=== PATIENT | female | born 1985 | race Two or more races ===

== ENCOUNTER → 2020-10-14 | Outpatient (REF) | payer OTHER ==
[2020-10-14 14:04] LABS: HEMATOCRIT 38.3 % (36.0-47.0); HEMOGLOBIN 11.5 g/dl (12.0-15.5); MEAN CORPUSCULAR HEMOGLOBIN 26.3 pg (27.0-33.0); MEAN CORPUSCULAR VOLUME 87.4 fl (80.0-96.0); PLATELET COUNT, AUTOMATED 242 10^3/uL (150-450); RED BLOOD COUNT 4.38 10^6/uL (4.00-5.40); WHITE BLOOD COUNT 7.3 10^3/uL (4.0-10.0)
[2020-10-14 15:07] LABS: HEPATITIS C VIRUS ABY INDEX 0.2 INDEX (<0.8); HIV 1&2 SCREEN CENTAUR NEGATIVE (NEGATIVE)
[2020-10-14 15:36] LABS: CHLAMYDIA DNA AMPLIFICATION NEGATIVE (NEGATIVE); GC DNA AMPLIFICATION NEGATIVE (NEGATIVE)
== END ==
LOC: M PLALAB 10:44
PROVIDERS: ATTEND Advanced Practice Midwife
DX: Z34.81 Encounter for supervision of other normal pregnancy, first trimester (principal); Z3A.00 Weeks of gestation of pregnancy not specified

== ENCOUNTER 2020-11-09 12:00 | Emergency (ER) | payer OTHER ==
[~2020-11-09] VITALS: Ht 162.6 cm; Wt 91.4 kg
[2020-11-09] MEDS ORDERED: diphenhydrAMINE 25MG CAP PO ONE (12:45)
--- NOTE | 2020-11-09 16:37 | REP ---
INDICATION: 13 weeks, unable to get FHR. COMPARISON: None. TECHNIQUE: Real-time sonographic evaluation of gravid uterus performed. FINDINGS: There is a single living intrauterine gestation with an estimated gestational age of 12 weeks 5 days based on a crown-rump length of 63 mm, EDC 05/19/2021. The heart rate is 161 beats per minute. There is no subchorionic hemorrhage. IMPRESSION: Viable intrauterine gestation as above. <Electronically signed by Salo Madera > 11/09/20 [id number]
[2020-11-09] MEDS ORDERED: KETO2CR TOP (16:41)
[2020-11-09 16:56] VITALS: BP 121/82
== END 2020-11-09 17:04 | disposition home or self-care (01) ==
LOC: M ED 12:00
DX: O99.511 Diseases of the respiratory system complicating pregnancy, first trimester (principal); J06.9 Acute upper respiratory infection, unspecified; O99.341 Other mental disorders complicating pregnancy, first trimester; F41.9 Anxiety disorder, unspecified; F43.9 Reaction to severe stress, unspecified; Z79.899 Other long term (current) drug therapy; Z3A.13 13 weeks gestation of pregnancy
CPT/HCPCS: 36415; 76801; 84702; 87880; 99283; U0003

== ENCOUNTER 2020-11-12 08:16 | Emergency (ER) | payer OTHER ==
[~2020-11-12] VITALS: Ht 162.6 cm; Wt 92.7 kg
[~2020-11-12 08:16] MED LIST: KETO2CR TOP
[2020-11-12] MEDS ORDERED: FLUORESCEIN OPHTH 1 MG STRIP OD ONE (09:00)
[2020-11-12] MEDS ORDERED: TETRACAINE 0.5% OPHTH SOLN 4ML OD ONE (09:00)
[2020-11-12 09:34] LABS: BASO % 0.3 % (0.0-1.0); EOS # 0.1 10^3/uL (0.0-0.5); EOS % 1.9 % (0.0-3.0); HEMATOCRIT 37.1 % (36.0-47.0); HEMOGLOBIN 11.1 g/dl (12.0-15.5); LYMPH # 1.9 10^3/uL (1.5-5.0); MEAN CORPUSCULAR HEMOGLOBIN 26.5 pg (27.0-33.0); MEAN CORPUSCULAR HGB CONC 29.9 g/dl (32.0-36.5); MEAN CORPUSCULAR VOLUME 88.5 fl (80.0-96.0); MONO # 0.4 10^3/uL (0.0-0.8); MONO % 5.8 % (0.0-5.0); NEUTROPHILS % 62.8 % (36.0-66.0); PLATELET COUNT, AUTOMATED 199 10^3/uL (150-450); RED BLOOD COUNT 4.19 10^6/uL (4.00-5.40); WHITE BLOOD COUNT 6.4 10^3/uL (4.0-10.0)
[2020-11-12 09:53] LABS: BLOOD UREA NITROGEN 7 MG/DL (7-18); CALCIUM LEVEL 8.6 MG/DL (8.5-10.1); CARBON DIOXIDE LEVEL 26 MEQ/L (21-32); CHLORIDE LEVEL 103 MEQ/L (98-107); CREATININE FOR GFR 0.84 MG/DL (0.55-1.30); GLOMERULAR FILTRATION RATE > 60.0 (>60); GLUCOSE, FASTING 136 MG/DL (70-100); POTASSIUM SERUM 3.7 MEQ/L (3.5-5.1); SODIUM LEVEL 137 MEQ/L (136-145)
[2020-11-12 10:02] LABS: MONO REFLEX EBV COMP NEGATIVE (NEGATIVE)
--- NOTE | 2020-11-12 10:10 | REP ---
INDICATION: unable to get FHR with doppler. 13 weeks. COMPARISON: None. TECHNIQUE: Transabdominal obstetric sonography. FINDINGS: Scanning through the gravid uterus demonstrates a single living intrauterine gestation in a free-floating transverse lie. The heart rate is recorded at 170 beats per minute. Placenta is predominantly anterior. The crown-rump length of the embryonic pole measures 6.7 cm.. This corresponds with a gestational age estimate of 13 weeks 0 days. There is a echogenic shadowing area in the myometrium 1.8 cm in greatest diameter question fibroid. No complication is identified. Anterior uterine contraction is seen. IMPRESSION: Viable single intrauterine gestation at 13 weeks 0 days by crown-rump length. ALLAN by sonography May 20, 2021. Question small uterine fibroid. <Electronically signed by Hermilo Damon > 11/12/20 [id number]
[2020-11-12] MEDS ORDERED: ACETAMINOPHEN TAB 650MG DOSE (2X325MG) PO ONE (10:30)
[2020-11-12 10:35] VITALS: BP 125/70
[2020-11-12] MEDS ORDERED: KEFL500C17 PO (10:35)
[2020-11-14 15:08] LABS: EBV VIRAL CAPSID AG IgM <36.0 U/mL (0.0-35.9)
== END 2020-11-12 10:55 | disposition short-term general hospital (02) ==
LOC: M ED 08:16
DX: O99.891 Other specified diseases and conditions complicating pregnancy (principal); R22.0 Localized swelling, mass and lump, head; R82.71 Bacteriuria; O98.511 Other viral diseases complicating pregnancy, first trimester; B02.30 Zoster ocular disease, unspecified; O99.511 Diseases of the respiratory system complicating pregnancy, first trimester; J03.90 Acute tonsillitis, unspecified; O99.341 Other mental disorders complicating pregnancy, first trimester; F43.10 Post-traumatic stress disorder, unspecified; Z3A.13 13 weeks gestation of pregnancy

== ENCOUNTER → 2020-12-08 | Outpatient (CLI) | payer OTHER ==
[~2020-12-08] MED LIST changes: +KEFL500C17 PO
== END ==
LOC: M WHC 12:33
PROVIDERS: ATTEND Advanced Practice Midwife
DX: Z53.20 Procedure and treatment not carried out because of patient's decision for unspecified reasons (principal); O09.529 Supervision of elderly multigravida, unspecified trimester

== ENCOUNTER → 2020-12-25 | Outpatient (CLI) | payer OTHER ==
--- NOTE | 2020-12-25 19:45 | REP ---
INDICATION: ANATOMY COMPARISON: None. TECHNIQUE: Transabdominal obstetrical ultrasound with color Doppler evaluation. FINDINGS: Examination demonstrates a single live intrauterine in breech presentation. motion is identified by technologist. Placenta is noted anterior and grade 1 without evidence for placenta previa or abruption. Amniotic fluid volume is normal. Cervix measures 3.9 cm in length and appears closed. There is suggestion for 1.3 cm partially calcified anterior intramural fibroid. Gestational age by LMP 19 weeks 4 days with ALLAN 05/17/2021. Gestational age by current measurements 19 weeks 2 days with ALLAN 05/19/2021. FHR equals 162 beats per minute. BPD: 4.4 cm 19 weeks 2 days HC: 16.7 cm 19 weeks 3 days AC: 13.0 cm 18 weeks 4 days FL: 3.2 cm 20 weeks 0 days HL: 2.9 cm 19 weeks 2 days HC/AC: 1.28 Estimated weight 281 grams. Anatomical assessment demonstrates normal structures including cranium, choroid plexus, cavum, cerebellum/posterior fossa, facial features, lungs, ventricular outflow tracts, diaphragm, stomach, cord insertion/three-vessel cord, kidneys/bladder, spine, and extremities. IMPRESSION: 1. Single live intrauterine in breech presentation. 2. Limited evaluation of the heart along with suspected prominent chordae tendineae may warrant re-evaluation and follow-up. <Electronically signed by Maninder Munguia > 12/25/201940
== END ==
LOC: M WHC 12:52
PROVIDERS: ATTEND Advanced Practice Midwife
DX: O09.522 Supervision of elderly multigravida, second trimester (principal); O32.1XX0 Maternal care for breech presentation, not applicable or unspecified; Z3A.19 19 weeks gestation of pregnancy

== ENCOUNTER → 2021-02-06 | Outpatient (CLI) | payer OTHER ==
[~2021-02-06] MED LIST changes: +PRENTAB9 PO
[2021-02-06 15:55] LABS: HEMATOCRIT 34.8 % (36.0-47.0); HEMOGLOBIN 10.7 g/dl (12.0-15.5); MEAN CORPUSCULAR HEMOGLOBIN 27.6 pg (27.0-33.0); MEAN CORPUSCULAR HGB CONC 30.7 g/dl (32.0-36.5); MEAN CORPUSCULAR VOLUME 89.7 fl (80.0-96.0); PLATELET COUNT, AUTOMATED 186 10^3/uL (150-450); RED BLOOD COUNT 3.88 10^6/uL (4.00-5.40); WHITE BLOOD COUNT 8.1 10^3/uL (4.0-10.0)
== END ==
LOC: M PLALAB 12:59
PROVIDERS: ATTEND Advanced Practice Midwife
DX: Z34.92 Encounter for supervision of normal pregnancy, unspecified, second trimester (principal); Z3A.00 Weeks of gestation of pregnancy not specified
CPT/HCPCS: 36415; 82950; 85027; 86850; 86900; 86901; 90834; G0463

== ENCOUNTER 2021-02-10 20:34 | Outpatient (CLI) | payer OTHER ==
[~2021-02-10] VITALS: Ht 160 cm; Wt 93.5 kg
[~2021-02-10 20:34] MED LIST changes: -PRENTAB9 PO
[2021-02-10 20:53] VITALS: BP 116/59
[2021-02-10] MEDS ORDERED: PRENTAB9 PO (21:27)
--- NOTE | 2021-02-10 22:13 | IPNPDOC ---
Text Note Date of Service The patient was seen on 02/10/21. NOTE Triage Note Veena is a 35yo with SIUP at 26w0d presenting to triage today for CC of LOF. She notes that yesterday when she was laying on the couch she noticed some fluid leak out onto her pants and sofa. She denies persistent leaking since that time. Has had some cramping, but nothing regular- no pattern. Feels good movement. No vaginal bleeding. Denies sx of vaginal odor/vaginal discomfort. No dysuria. Vitals wnl, afebrile Gen: WDWN, resting comfortably in bed Abdomen: soft, gravid, NTTP Extremities: no edema of BLE SSE: normal physiologic discharge in vaginal vault, cervix visually thick/closed/high, NO pooling, negative valsalva. Nitrazine negative, Ferning negative. EDEN/WP show normal liu with no budding yeast/hyphae, no trichomonas, no clue cells TAUS: SIUP with cephalic presentation, MVP 7.5cm, anterior placenta, +FCA, +FM Cat I FHRT with +accels, -decels, mod chester no ctx pattern on toco Veena is a 35yo with SIUP at 26w0d with NO e/o PPROM or PTL. Negative nitrazine/ferning/pooling/valsalva. Cervix visually cl/th/h. Reassuring status. MVP 7.5cm. Plan: -Discharged to home -Pt to follow up with routine OB visit 26 February and has 3hr GTT scheduled -Discussed return precautions MD BIN Clay Fishbone, I+O VSTheodore I+O Vital Signs Date Time Temp Pulse Resp B/P (MAP) Pulse Ox O2 Delivery O2 Flow Rate FiO2 02/10/21 20:53 98.8 97 18 116/59 (78) Huma Baird MD Feb 10, 2021 22:13
== END 2021-02-10 22:20 | disposition home or self-care (01) ==
LOC: M LDO 20:34
PROVIDERS: ATTEND Obstetrics & Gynecology
DX: O26.892 Other specified pregnancy related conditions, second trimester (principal); Z3A.26 26 weeks gestation of pregnancy
CPT/HCPCS: G0378; G0463

== ENCOUNTER → 2021-02-18 | Outpatient (CLI) | payer OTHER ==
[~2021-02-18] MED LIST changes: +PRENTAB9 PO
== END ==
LOC: M LAB 07:45
PROVIDERS: ATTEND Advanced Practice Midwife
DX: O99.810 Abnormal glucose complicating pregnancy (principal); Z3A.00 Weeks of gestation of pregnancy not specified

== ENCOUNTER 2021-04-22 04:07 | Outpatient (CLI) | payer OTHER ==
[~2021-04-22] VITALS: Ht 162.6 cm; Wt 99.8 kg
[2021-04-22 04:34] VITALS: BP 139/81
[2021-04-22] MEDS ORDERED: ZOLO50TA PO (05:43)
[2021-04-22 05:53] VITALS: BP 143/84
[2021-04-22 06:54] VITALS: BP 126/80
[2021-04-22] MEDS ORDERED: CEPH500T PO (07:51)
--- NOTE | 2021-04-22 08:01 | IPNPDOC ---
Text Note Date of Service The patient was seen on 04/22/21. NOTE Triage Note Veena is a 36yo with SIUP at 36w1d by 9wk u/s presenting for ctx that she feels in her back and front. She endorses she hasn't had a lot of water to drink. Baby moving very well. No LOF/vaginal bleeding. Vitals wnl, afebrile Gen: WDWN, resting comfortably in bed Abd: gravid, NTTP Extremities: no edema of BLE SCE by RN: cervix thick/high/posterior (not well tolerated) GBS swab obtained Cat I FHRT with +accels, -decels, mod chester [place]: irregular ctx Labs: Urinalysis: 3+ LE, 27 WBC, 3+ bacteria, 6 squam Assessment: Veena is a 36yo with SIUP at 36w1d by 9wk u/s with NO e/o labor. She has likely UTI by UA. Reassuring assessment. Normal vitals and exam. Plan: -Safe for discharge home -Rx keflex for presumed UTI (urine culture pending) -GBS swab was collected so patient can begin keflex right away -Discussed she would not need to keep OB appt later today, but she strongly desires to, so I did not perform u/s for presentation -discussed return precautions Huma Baird MD VS,Theodore, I+O VS, Theodore, I+O Vital Signs Date Time Temp Pulse Resp B/P (MAP) Pulse Ox O2 Delivery O2 Flow Rate FiO2 04/22/21 06:54 98.7 79 18 126/80 (95) Huma Baird MD April 22, 2021 08:01
== END 2021-04-22 08:08 | disposition home or self-care (01) ==
LOC: M LDO 04:07
PROVIDERS: ATTEND Obstetrics & Gynecology
DX: O23.43 Unspecified infection of urinary tract in pregnancy, third trimester (principal); O26.893 Other specified pregnancy related conditions, third trimester; Z3A.36 36 weeks gestation of pregnancy; R10.2 Pelvic and perineal pain; Z88.2 Allergy status to sulfonamides
CPT/HCPCS: 59025; 81001; 87081; 87086; G0378; G0463

== ENCOUNTER → 2021-04-23 | Outpatient (CLI) | payer OTHER ==
[~2021-04-23] MED LIST changes: +CEPH500T PO; +ZOLO50TA PO
--- NOTE | 2021-04-23 12:09 | REP ---
INDICATION: GROWTH/SIZE DATE DISCREPANCY. COMPARISON: Comparison study December 25, 2020.. TECHNIQUE: Transabdominal obstetric sonography. FINDINGS: Scanning through the gravid uterus demonstrates a viable single intrauterine gestation in cephalic lie. motion is observed and heart rate is recorded at 150 beats per minute. A anterior placenta is seen, grade 1, without evidence of placenta previa. Closed cervical length is not measurable due to head position.. No extrauterine abnormality is observed. Amniotic fluid is subjectively normal. ODALIS is normal 16.0 cm.. anatomic survey is not performed with today's exam.. Biometry chart: BPD 8.3 cm, 33 weeks 3 days Head circumference 32.5 cm, 36 weeks 6 days Abdominal circumference 33.5 cm, 37 weeks 3 days Femur length 7.3 cm, 37 weeks 2 days Humeral length 6.3 cm, 36 weeks 2 days HC AC ratio normal 0.97 Cephalic index normal 0.69 Estimated weight 3053 g, 6 lb 11 oz, 61st percentile for 36 weeks 4 days IMPRESSION: Viable single intrauterine gestation at 36 weeks 2 days by today's composite sonographic criteria. ALLAN by today's sonography May 19, 2021. No complication identified. Expected gestational age estimate based on prior sonography 36 weeks 4 days, ALLAN by prior sonography May 17, 2021. There is evidence of appropriate interval growth. <Electronically signed by Hermilo Damon > 04/23/21 2050
== END ==
LOC: M WHC 11:06
PROVIDERS: ATTEND Advanced Practice Midwife
DX: O26.849 Uterine size-date discrepancy, unspecified trimester (principal); Z3A.36 36 weeks gestation of pregnancy

== ENCOUNTER 2021-04-28 04:06 | Inpatient (IN) | payer OTHER ==
[2021-04-28] VITALS (26 sets, daily range): BP systolic 113–153; BP diastolic 59–90
[~2021-04-28] VITALS: Ht 162.6 cm; Wt 102.1 kg
[2021-04-28] MEDS ORDERED: CARBOPROST TROMETHAMINE 250 MCG/ML AMP IM PRN (05:20)
[2021-04-28] MEDS ORDERED: METHYLERGONOVINE MALEATE 0.2 MG/ML VIAL (J2210) IM PRN (05:20)
[2021-04-28] MEDS ORDERED: LACTATED RINGER'S 1000 ML IV STA (05:20)
[2021-04-28] MEDS ORDERED: LIDOCAINE 1% MDV 20ML VIAL INFIL PRN (05:20)
[2021-04-28] MEDS ORDERED: TRANEXAMIC ACID INJection 1,000 MG in NS 100 ML IV PRN (05:20)
[2021-04-28] MEDS ORDERED: OXYTOCIN DRIP 30 UNITS in IV 1 EA IV PRN ×4 (05:20)
--- NOTE | 2021-04-28 05:35 | HPEPDOC ---
Obstetrical History & Physical General Date of Admission Apr 28, 2021 at 05:17 Primary Care Physician: JACKIE LÓPEZ CNM History of Present Illness Veena is a 36-year-old who is a at 37 weeks gestation with an ALLAN of 05/19/21 based off of her first trimester ultrasound. She initiated care in her first trimester of care at [facility]. Her has been complicated by advanced maternal age, a history of delivery at 35 weeks due to PROM and PTSD. She presents to L&D with complaints of leaking of fluid that started at 0200. Reports fluid is clear and yellow. Reports occasional contractions and active movement. She denies vaginal bleeding. Chief Complaint: Rupture of membranes Information Provided By: Patient Age: 36 : 5 Term: 2 Pre-term: 1 Abortions: 0 Livin Care Care: Good Care Dating Final EDC: May 19, 2021 Final EDC by: 1st trimester (US) EGA at Admission: 37 Antepartum Course Diagnos(e)s AMA History of labor with fetus with neuroblastoma () Height (inches): 64 Admission Weight (lbs.): 224 Past Medical History Past Obstetrical History #1: Date of Delivery: Jun 13, 2005 Gestation: 37 Type of Delivery: Spontaneous Vaginal Del. Sex of : Female (7 lbs 7 oz) Complications: No Past Obstetrical History #2: Past Obstetrical History: Multigravida Date of Delivery: April 23, 2017 Gestation: 35 Type of Delivery: Spontaneous Vaginal Del. Sex of : Female Complications: Yes (PROM and due to neuroblastomoa at 9 months old) Past Obstetrical History #3: Past Obstetrical History: Multigravida Date of Delivery: Jul 23, 2019 Gestation: 37 Type of Delivery: Spontaneous Vaginal Del. 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) Past Medical History Medical History back pain psychiatric-see below Surgical History: Tonsilectomy Family History Significant Family History: Cancer (colon and breast), Hypertension Social History Marital Status: Family situation: Spouse/partner home Psychosocial History: Anxiety, Depression, PTSD * Smoker: non-smoker Alcohol: Denies Drugs: denies Abuse Violence Screening Have you been hit/kicked/slapp: No Have you been sexually assault: No (being treated with Zoloft) Allergies Coded Allergies: Sulfa (Sulfonamide Antibiotics) (Verified Allergy, Unknown, 02/10/21) Medications Scheduled Cephalexin (Cephalexin) 500 Mg Tablet, 500 MG PO QID No.137/Iron/Folic Acd ( Vitamin Tablet) 1 Each Tablet, 1 TAB PO DAILY Sertraline Hcl (Zoloft) 50 Mg Tablet, 1 TAB PO QHS Physical Examination Physical Examination GENERAL: Alert and oriented times three. BREAST: . ABDOMEN: Gravid and non-tender to touch. FETUS: Is vertex (VTX) by sterile vaginal examination (SVE), fetus is vertex (VTX) by Robert. LUNGS: Clear to auscultation (CTA). SSE: scant yellow to clear fluid noted in vagina, no pooling, negative nitrazine, positive fern. + nitrazine of fluid that was noted on the towel. EXTREMITIES: Generalized edema. No clonus. Deep tendon reflexes (DTRs) + 2. Vital Signs/I&O Vital Signs Date Time Temp Pulse Resp B/P (MAP) Pulse Ox O2 Delivery O2 Flow Rate FiO2 04/28/21 04:27 97.8 83 18 127/82 (97) 98 Room Air Laboratory Data 24H LABS Laboratory Tests 2 04/28/21 05:21: Serology Scanned Report Hepatitis B Testing Pertinent Laboratoy Data Blood Type: B+ RBC Antibody Screen: Negative HIV: Negative Hepatitis B: Negative Hepatitis C: Negative Rapid Plasma Reagin: Nonreactive Rubella: Immune Chlamydia/Gonorrhea: Negative Group B Streptococcus: Negative Glucose Tolerance Test: 142 Anatomy Ultrasound Ultrasound Date: April 23, 2021 Placenta Location: Anterior Normal Anatomy: Yes Placenta Previa: No Estimated Weight (grams): 3053 Vaginal Examination Dilation: 3 cm Cervical Position: Posterior Presentation: Cephalic presentation Position: Vertex (occiput) Assessment Heart Rate (FHR): 150 Variability: Moderate Accelerations: Positive Decelerations: None Tocometer Contractions: Yes Frequency: irregular Multi-drug resistant Organism: No history of MDRO Assessment/Plan Assessment IUP at 37 weeks gestation spontaneous rupture of membranes GBS negative Category I FHR tracing Plan Admit to L&D OOB ad william Diet: regular now then clears. Group B Streptococcus (GBS) negative. Labs and intravenous (IV) per unit protocol. Counseled on Pitocin augmentation of labor (IOL). Anesthesia consult per patient's request. Lactated Ringers (LR): Bolus 800 mL prior to epidural, then at 125 mL/hr. Anticipate cervical change C-S as appropriate. JACKIE LÓPEZ CNM Apr 28, 2021 05:35
[2021-04-28] MEDS: LR 1,000 ML IV SCH ×2 (06:16→13:57)
[2021-04-28 06:30] LABS: HEMATOCRIT 33.6 % (36.0-47.0); HEMOGLOBIN 10.4 g/dl (12.0-15.5); MEAN CORPUSCULAR HEMOGLOBIN 27.9 pg (27.0-33.0); MEAN CORPUSCULAR VOLUME 90.1 fl (80.0-96.0); PLATELET COUNT, AUTOMATED 169 10^3/uL (150-450); RED BLOOD COUNT 3.73 10^6/uL (4.00-5.40); WHITE BLOOD COUNT 6.9 10^3/uL (4.0-10.0)
[2021-04-28] MEDS ORDERED: fentaNYL 100 MCG/2 ML INJECTION (J3010) As Ordered ONE (11:49)
[2021-04-28] MEDS ORDERED: FENTANYL 2MCG/ML ROPIVACAINE 0.2% IN 0.9% NACL 100ML IVBAG As Ordered ONE (11:50)
[2021-04-28] MEDS ORDERED: ePHEDrine SULFATE 25 MG/5 ML(5MG/ML) SYRINGE IV PRN (12:30)
[2021-04-28] MEDS ORDERED: ONDANSETRON 4MG/2ML VIAL IV PRN ×2 (12:30→17:00)
[2021-04-28] MEDS ORDERED: FENTANYL/ROPIVACAINE/NACL BAG 100 ML EPIDURAL SCH (12:30)
[2021-04-28] MEDS ORDERED: diphenhydrAMINE 50MG/ML VIAL (J1200) IV PRN (12:30)
[2021-04-28] MEDS ORDERED: EPIDURAL COMMENT XX SCH (12:30)
[2021-04-28] MEDS ORDERED: EPIDURAL/PCA KEYS XX PRN (12:30)
[2021-04-28] MEDS ORDERED: NALOXONE INJ 0.4MG/1ML VIAL (J2310 PER 1MG) IV PRN (12:30)
[2021-04-28] MEDS ORDERED: LACTATED RINGER'S 1000 ML IV PRN (12:30)
[2021-04-28] MEDS ORDERED: REFRIGERATOR IV KEYS XX PRN (12:30)
[2021-04-28] MEDS ORDERED: DIBUCAINE 1% OINTMENT 30GM TOP PRN (17:00)
[2021-04-28] MEDS ORDERED: DOCUSATE SODIUM 100MG CAPSULE PO PRN (17:00)
[2021-04-28] MEDS ORDERED: MEASLES,MUMPS,RUBELLA VACCINE INJ (MMR-II) (90707) SC SCH (17:00)
[2021-04-28] MEDS ORDERED: IBUPROFEN 600MG TAB PO PRN (17:00)
[2021-04-28] MEDS ORDERED: RHOGAM 300 MCG (1500 IU) INJ (J2790) IM SCH (17:00)
[2021-04-28] MEDS ORDERED: OXYTOCIN DRIP 30 UNITS in IV 1 EA IV ONE (17:00)
[2021-04-28] MEDS ORDERED: ACETAMINOPHEN TAB 650MG DOSE (2X325MG) PO PRN (17:00)
[2021-04-28] MEDS ORDERED: METHYLERGONOVINE MALEATE 0.2 MG TAB PO PRN (17:00)
[2021-04-28] MEDS: IBUPROFEN 800 MG TAB PO PRN (18:46)
[2021-04-28] MEDS ORDERED: diphenhydrAMINE 25MG CAP PO ONE (19:30)
--- NOTE | 2021-04-28 20:23 | DNPDOC ---
[facility] Delivery Note Delivery Note DATE OF DELIVERY: April 28, 2021 PREDELIVERY DIAGNOSIS: 37-1/7 weeks' gestation and labor, spontaneous rupture of membranes. POST DELIVERY DIAGNOSIS: Delivered. PROCEDURE: Spontaneous vaginal delivery. WASH OIL COOLER OPERATOR: Tutu Gallegos MD ANESTHESIA: epidural. ESTIMATED BLOOD LOSS: 300 mL. FINDINGS: 7 pound 10 ounce female infant, Score 6/9. DELIVERY SUMMARY: Patient is a 36-year-old who was admitted to labor and delivery for spontaneous rupture of membranes in labor. She progressed to become fully dilated. After a 15 minute second stage of labor she had a spontaneous vaginal delivery of a 7 lbs. 10 oz. female infant. There was no nuchal cord. The shoulders delivered with ease. The infant was handed to the mother. The cord was clamped and cut. Placenta delivered spontaneously and appeared to be intact. Patient received IV Pitocin immediately after delivery and placenta. Sponge counts were correct. TUTU GALLEGOS MD Apr 28, 2021 20:18
[2021-04-28] MEDS: ACETAMINOPHEN 500 MG TAB PO PRN (20:58)
[2021-04-29] MEDS: IBUPROFEN 800 MG TAB PO PRN ×3 (02:51→20:15)
[2021-04-29] MEDS: ACETAMINOPHEN 500 MG TAB PO PRN ×3 (04:07→22:02)
[2021-04-29 06:00] VITALS: BP 111/62
[2021-04-29] MEDS: PRENATAL VITAMINS CHEWABLE TABLET PO SCH (07:50)
[2021-04-29 10:00] VITALS: BP 127/70
[2021-04-29 18:06] VITALS: BP 138/74
[2021-04-30 06:00] VITALS: BP 121/58
[2021-04-30] MEDS: IBUPROFEN 800 MG TAB PO PRN ×2 (06:09→13:55)
[2021-04-30] MEDS: ACETAMINOPHEN 500 MG TAB PO PRN (06:09)
[2021-04-30] MEDS: PRENATAL VITAMINS CHEWABLE TABLET PO SCH (08:00)
[2021-04-30 17:59] VITALS: BP 146/88
[2021-04-30] MEDS ORDERED: NICOTINE 21MG/24HR 1 EA TRANSDERMAL TD SCH (21:00)
== END 2021-04-30 19:20 | disposition home or self-care (01) | DRG 807 ==
LOC: M LDO 04:06 → M LDI 05:17 → M OBS 20:46
PROVIDERS: ADMIT Advanced Practice Midwife; ATTEND Specialist
PROC: 10E0XZZ Delivery of Products of Conception, External Approach (ICD-10-PCS; principal; 2021-04-28)
DX: O99.344 Other mental disorders complicating childbirth (principal); Z37.0 Single live birth; Z3A.37 37 weeks gestation of pregnancy; F41.9 Anxiety disorder, unspecified; F32.9 Major depressive disorder, single episode, unspecified

== ENCOUNTER → 2021-07-08 | Outpatient (REF) | payer OTHER | LOC: M SFHCWAGY 17:53 | PROVIDERS: ATTEND Advanced Practice Midwife | DX: R10.2 Pelvic and perineal pain (principal) | CPT/HCPCS: 87086; G0463 ==

== ENCOUNTER → 2021-07-20 | Outpatient (CLI) | payer OTHER | LOC: M WHC 12:25 | PROVIDERS: ATTEND Advanced Practice Midwife | DX: R10.2 Pelvic and perineal pain (principal) ==

== ENCOUNTER → 2021-07-29 | Outpatient (CLI) | payer OTHER ==
--- NOTE | 2021-07-30 09:07 | REP ---
INDICATION: PELVIC PAIN COMPARISON: None. TECHNIQUE: Transabdominal pelvic ultrasound. FINDINGS: Bladder is unremarkable and measures 9.1 x 7.1 x 8.9 cm. Anteverted uterus measures 11.4 x 4.7 x 6.2 cm. The endometrial complex measures 7.0 mm thickness. 1.3 cm right intramural fibroid cannot be excluded. Ovaries are not visualized. No pelvic fluid or adnexal mass lesion. IMPRESSION: Possible small right intramural fibroid. Ovaries not visualized. <Electronically signed by Maninder Munguia > 07/30/21 [id number]
== END ==
LOC: M WHC 11:34
PROVIDERS: ATTEND Advanced Practice Midwife
DX: R10.2 Pelvic and perineal pain (principal)

== ENCOUNTER → 2023-01-26 | Outpatient (CLI) | payer OTHER ==
[2023-01-26 14:41] LABS: BASO % 0.3 % (0.0-1.0); EOS # 0.2 10^3/uL (0.0-0.5); HEMOGLOBIN 12.8 g/dl (12.0-15.5); LYMPH # 3.3 10^3/uL (1.5-5.0); LYMPH % 42.2 % (24.0-44.0); MEAN CORPUSCULAR HEMOGLOBIN 29.2 pg (27.0-33.0); MEAN CORPUSCULAR HGB CONC 32.8 g/dl (32.0-36.5); MONO # 0.7 10^3/uL (0.0-0.8); MONO % 8.2 % (2.0-8.0); NEUTROPHILS # 3.7 10^3/uL (1.5-8.5); PLATELET COUNT, AUTOMATED 280 10^3/uL (150-450); RED BLOOD COUNT 4.38 10^6/uL (4.00-5.40); WHITE BLOOD COUNT 7.9 10^3/uL (4.0-10.0)
[2023-01-26 15:04] LABS: ALBUMIN 3.6 G/DL (3.2-5.2); ALKALINE PHOSPHATASE 80 U/L (46-116); ALT/SGPT 19 U/L (7.0-40); AST/SGOT 17 U/L (<34); BILIRUBIN,TOTAL 0.3 MG/DL (0.3-1.2); BLOOD UREA NITROGEN 15 MG/DL (9-23); CALCIUM LEVEL 9.3 MG/DL (8.5-10.1); CARBON DIOXIDE LEVEL 29 MMOL/L (20-31); CHLORIDE LEVEL 103 MMOL/L (98-107); CORTISOL BASELINE 7.7 UG/DL (4.3-22.4); CREATININE FOR GFR 0.88 MG/DL (0.55-1.30); FERRITIN 56.6 NG/ML (7.3-270.7); FREE T4 1.01 NG/DL (0.89-1.76); GLOMERULAR FILTRATION RATE > 60.0 (>60); GLUCOSE, FASTING 83 MG/DL (60-100); POTASSIUM SERUM 4.4 MMOL/L (3.5-5.1); SODIUM LEVEL 139 MMOL/L (136-145); THYROID STIMULATING HORMONE 2.008 uIU/ML (0.55-4.78); TOTAL 25(OH) VITAMIN D 28.8 NG/ML (20.0-100.0); TOTAL PROTEIN 7.6 G/DL (5.7-8.2)
[2023-01-26 15:17] LABS: ERYTHROCYTE SEDIMENTATION RATE 53 mm/hr (0-20)
== END ==
LOC: M PLAIMG 01-25 11:55
PROVIDERS: ATTEND Physician Assistant
DX: M54.42 Lumbago with sciatica, left side (principal); M54.41 Lumbago with sciatica, right side; M54.2 Cervicalgia; R20.2 Paresthesia of skin; M79.10 Myalgia, unspecified site; R23.3 Spontaneous ecchymoses

== ENCOUNTER 2023-08-31 09:56 | Emergency (ER) | payer OTHER ==
[~2023-08-31] VITALS: Ht 162.6 cm; Wt 93.5 kg
[2023-08-31] MEDS ORDERED: GABAPENTIN 300 MG CAP PO ONE (13:05)
[2023-08-31] MEDS ORDERED: KETOROLAC 60MG 2ML VIAL IM ONE (13:05)
[2023-08-31] MEDS ORDERED: LIDOCAINE 5% (LIDODERM) PATCH TD ONE (13:05)
[2023-08-31] MEDS ORDERED: predniSONE 20 MG TAB PO ONE (13:05)
[2023-08-31] MEDS ORDERED: DICL75TA PO ×2 (13:06→13:58)
[2023-08-31] MEDS ORDERED: NEUR300C PO ×2 (13:06→13:58)
[2023-08-31] MEDS ORDERED: BACL1TAB8 PO ×2 (13:06→13:58)
[2023-08-31] MEDS ORDERED: LIDO5DIS41 TD ×2 (13:06→13:58)
[2023-08-31] MEDS ORDERED: PRED20TA PO ×2 (13:06→13:58)
[2023-08-31 14:01] VITALS: BP 140/74; TEMP 98.6; O2SAT 98
== END 2023-08-31 14:02 | disposition home or self-care (01) ==
LOC: M ED 13:16
DX: M54.59 Other low back pain (principal); M54.2 Cervicalgia; F41.9 Anxiety disorder, unspecified
CPT/HCPCS: 96372; 99283; J1885; J7512

== ENCOUNTER → 2023-09-13 | Outpatient (CLI) | payer OTHER ==
[~2023-09-13] MED LIST changes: +BACL1TAB8 PO; +DICL75TA PO; +LIDO5DIS41 TD; +NEUR300C PO; +PRED20TA PO
[2023-09-13 14:12] LABS: BASO % 0.1 % (0.0-1.0); EOS # 0.1 10^3/uL (0.0-0.5); EOS % 1.3 % (0.0-3.0); HEMATOCRIT 40.2 % (36.0-47.0); HEMOGLOBIN 12.5 g/dl (12.0-15.5); LYMPH % 39.1 % (24.0-44.0); MEAN CORPUSCULAR HEMOGLOBIN 27.5 pg (27.0-33.0); MEAN CORPUSCULAR HGB CONC 31.1 g/dl (32.0-36.5); MEAN CORPUSCULAR VOLUME 88.5 fl (80.0-96.0); MONO # 0.6 10^3/uL (0.0-0.8); MONO % 6.1 % (2.0-8.0); NEUTROPHILS # 5.4 10^3/uL (1.5-8.5); NEUTROPHILS % 53.1 % (36.0-66.0); PLATELET COUNT, AUTOMATED 248 10^3/uL (150-450); RED BLOOD COUNT 4.54 10^6/uL (4.00-5.40); WHITE BLOOD COUNT 10.2 10^3/uL (4.0-10.0)
[2023-09-13 14:21] LABS: TOTAL 25(OH) VITAMIN D 22.1 NG/ML (20.0-100.0)
[2023-09-13 14:22] LABS: RHEUMATOID FACTOR QUANT < 3.5 IU/ML (<14); VITAMIN B12 LEVEL 513 PG/ML (211-911)
[2023-09-13 14:23] LABS: ALBUMIN 3.3 G/DL (3.2-5.2); ALKALINE PHOSPHATASE 74 U/L (46-116); ALT/SGPT 23 U/L (7.0-40); AST/SGOT 12 U/L (<34); BILIRUBIN,TOTAL 0.3 MG/DL (0.3-1.2); BLOOD UREA NITROGEN 23 MG/DL (9-23); CARBON DIOXIDE LEVEL 33 MMOL/L (20-31); CHLORIDE LEVEL 102 MMOL/L (98-107); CREATININE FOR GFR 0.88 MG/DL (0.55-1.30); GLOMERULAR FILTRATION RATE > 60.0 (>60); GLUCOSE, FASTING 108 MG/DL (60-100); SODIUM LEVEL 140 MMOL/L (136-145)
[2023-09-13 14:39] LABS: ERYTHROCYTE SEDIMENTATION RATE 45 mm/hr (0-20)
[2023-09-15 00:08] LABS: ANA (HEP2) Positive (.); ANTINUCLEAR ANTIBODIES DIRECT Negative (Negative)
== END ==
LOC: M PLALAB 10:52
PROVIDERS: ATTEND Nurse Practitioner Family
DX: M25.50 Pain in unspecified joint (principal); E55.9 Vitamin D deficiency, unspecified; R20.2 Paresthesia of skin
CPT/HCPCS: 36415; 80053; 82306; 82607; 85025; 85652; 86038; 86140; 86431; 96372; G0463; J1885

== ENCOUNTER → 2023-09-29 | Outpatient (CLI) | payer OTHER ==
[2023-09-29 14:10] LABS: URIC ACID 4.5 MG/DL (3.1-7.8)
[2023-09-29 14:14] LABS: IRON (FE) 62 UG/DL (50-170)
[2023-09-29 14:16] LABS: BASO % 0.4 % (0.0-1.0); EOS # 0.3 10^3/uL (0.0-0.5); EOS % 5.5 % (0.0-3.0); HEMATOCRIT 38.8 % (36.0-47.0); HEMOGLOBIN 11.9 g/dl (12.0-15.5); LYMPH # 2.5 10^3/uL (1.5-5.0); LYMPH % 45.3 % (24.0-44.0); MEAN CORPUSCULAR HEMOGLOBIN 26.8 pg (27.0-33.0); MEAN CORPUSCULAR HGB CONC 30.7 g/dl (32.0-36.5); MEAN CORPUSCULAR VOLUME 87.4 fl (80.0-96.0); MONO # 0.5 10^3/uL (0.0-0.8); MONO % 8.2 % (2.0-8.0); NEUTROPHILS # 2.3 10^3/uL (1.5-8.5); NEUTROPHILS % 40.4 % (36.0-66.0); PLATELET COUNT, AUTOMATED 259 10^3/uL (150-450); RED BLOOD COUNT 4.44 10^6/uL (4.00-5.40); WHITE BLOOD COUNT 5.6 10^3/uL (4.0-10.0)
[2023-09-29 14:17] LABS: ALBUMIN 3.5 G/DL (3.2-5.2); ALKALINE PHOSPHATASE 74 U/L (46-116); ALT/SGPT 17 U/L (7.0-40); AST/SGOT 12 U/L (<34); BILIRUBIN,TOTAL 0.3 MG/DL (0.3-1.2); BLOOD UREA NITROGEN 12 MG/DL (9-23); CALCIUM LEVEL 9.2 MG/DL (8.5-10.1); CARBON DIOXIDE LEVEL 28 MMOL/L (20-31); CHLORIDE LEVEL 104 MMOL/L (98-107); CHOLESTEROL LEVEL 171 MG/DL (<200); CHOLESTEROL RISK RATIO 4.31 (<5); CREATININE FOR GFR 0.83 MG/DL (0.55-1.30); FERRITIN 55.9 NG/ML (7.3-270.7); FREE T3 3.3 PG/ML (2.3-4.2); FREE T4 0.88 NG/DL (0.89-1.76); GLOMERULAR FILTRATION RATE > 60.0 (>60); GLUCOSE, FASTING 97 MG/DL (60-100); HDL CHOLESTEROL 39.6 MG/DL (>40); LDL CHOLESTEROL 97.6 MG/DL (<100); MAGNESIUM LEVEL 1.8 MG/DL (1.8-2.4); NON-HDL-C 131.4 MG/DL; POTASSIUM SERUM 4.4 MMOL/L (3.5-5.1); SODIUM LEVEL 139 MMOL/L (136-145); THYROID STIMULATING HORMONE 0.987 uIU/ML (0.55-4.78); TOTAL 25(OH) VITAMIN D 31.7 NG/ML (20.0-100.0); TOTAL PROTEIN 7.2 G/DL (5.7-8.2); TRIGLYCERIDES LEVEL 169 MG/DL (<150); VITAMIN B12 LEVEL 450 PG/ML (211-911)
[2023-09-29 14:37] LABS: HEMOGLOBIN A1c 5.6 % (4.0-6.0)
== END ==
LOC: M PLALAB 09:41
PROVIDERS: ATTEND Family Medicine
DX: Z00.00 Encounter for general adult medical examination without abnormal findings (principal); D50.9 Iron deficiency anemia, unspecified; R53.83 Other fatigue; E78.5 Hyperlipidemia, unspecified; E55.9 Vitamin D deficiency, unspecified

== ENCOUNTER → 2023-10-31 | Outpatient (CLI) | payer OTHER | LOC: M PLAIMG 09:19 | PROVIDERS: ATTEND Nurse Practitioner Family | DX: M47.12 Other spondylosis with myelopathy, cervical region (principal); M50.222 Other cervical disc displacement at C5-C6 level ==

== ENCOUNTER → 2023-11-03 | Outpatient (CLI) | payer OTHER | LOC: M PLAIMG 09:17 | PROVIDERS: ATTEND Orthopaedic Surgery | DX: M54.6 Pain in thoracic spine (principal); M54.50 Low back pain, unspecified ==

== ENCOUNTER → 2023-12-06 | Outpatient (REF) | payer OTHER | LOC: M SFHCWAGY 14:00 | PROVIDERS: ATTEND Nurse Practitioner Family | DX: Z12.4 Encounter for screening for malignant neoplasm of cervix (principal) | CPT/HCPCS: 87624; G0123; G0463 ==

== ENCOUNTER 2023-12-20 10:11 | Outpatient (RCR) | payer OTHER | END 2023-12-28 | LOC: M PT 10:11 | PROVIDERS: ATTEND Nurse Practitioner Family | DX: N39.3 Stress incontinence (female) (male) (principal) ==

== ENCOUNTER 2024-01-10 09:51 | Outpatient (RCR) | payer OTHER | END 2024-01-26 | LOC: M PT 09:51 | PROVIDERS: ATTEND Nurse Practitioner Family | DX: N39.3 Stress incontinence (female) (male) (principal) ==

== ENCOUNTER → 2024-01-11 | Outpatient (CLI) | payer OTHER | LOC: M WHC 09:50 | PROVIDERS: ATTEND Nurse Practitioner Family | DX: D25.1 Intramural leiomyoma of uterus (principal); R10.2 Pelvic and perineal pain ==

== ENCOUNTER → 2024-04-30 | Outpatient (REF) | payer OTHER | LOC: M SFHCPLAZ 14:58 | PROVIDERS: ATTEND Physician Assistant Medical | DX: J06.9 Acute upper respiratory infection, unspecified (principal) ==

== ENCOUNTER → 2024-06-25 | Outpatient (CLI) | payer OTHER ==
[2024-06-25 17:56] LABS: BASO % 0.2 % (0.0-1.0); EOS # 0.2 10^3/uL (0.0-0.5); EOS % 2.1 % (0.0-3.0); HEMOGLOBIN 12.7 g/dl (12.0-15.5); LYMPH # 3.3 10^3/uL (1.5-5.0); MEAN CORPUSCULAR HGB CONC 31.8 g/dl (32.0-36.5); MEAN CORPUSCULAR VOLUME 88.1 fl (80.0-96.0); MONO # 0.5 10^3/uL (0.0-0.8); MONO % 6.2 % (2.0-8.0); NEUTROPHILS # 4.6 10^3/uL (1.5-8.5); NEUTROPHILS % 53.3 % (36.0-66.0); PLATELET COUNT, AUTOMATED 255 10^3/uL (150-450); RED BLOOD COUNT 4.54 10^6/uL (4.00-5.40); WHITE BLOOD COUNT 8.7 10^3/uL (4.0-10.0)
[2024-06-25 18:38] LABS: ALBUMIN 3.8 G/DL (3.2-5.2); ALKALINE PHOSPHATASE 94 U/L (46-116); ALT/SGPT 18 U/L (7.0-40); AST/SGOT 11 U/L (<34); BILIRUBIN,TOTAL 0.2 MG/DL (0.3-1.2); BLOOD UREA NITROGEN 17 MG/DL (9-23); CALCIUM LEVEL 9.4 MG/DL (8.5-10.1); CARBON DIOXIDE LEVEL 29 MMOL/L (20-31); CHLORIDE LEVEL 102 MMOL/L (98-107); CREATININE FOR GFR 0.91 MG/DL (0.55-1.30); GLOMERULAR FILTRATION RATE > 60.0 (>60); GLUCOSE, FASTING 99 MG/DL (60-100); POTASSIUM SERUM 4.3 MMOL/L (3.5-5.1); SODIUM LEVEL 138 MMOL/L (136-145); TOTAL PROTEIN 7.6 G/DL (5.7-8.2)
[2024-06-25 18:39] LABS: THYROID STIMULATING HORMONE 1.112 uIU/ML (0.55-4.78)
== END ==
LOC: M PLALAB 16:19
PROVIDERS: ATTEND Nurse Practitioner Family
DX: R53.83 Other fatigue (principal)

== ENCOUNTER → 2024-09-04 | Outpatient (REF) | payer OTHER ==
[2024-09-04 16:59] LABS: APPEARANCE, URINE CLEAR (CLEAR); BACTERIA, URINE AUTO NEGATIVE (NEGATIVE); BILIRUBIN, URINE AUTO NEGATIVE (NEGATIVE); BLOOD, URINE BLOOD 3+ (NEGATIVE); COLOR, URINE YELLOW (YELLOW); GLUCOSE, URINE (UA) AUTO NEGATIVE (NEGATIVE); KETONE, URINE AUTO NEGATIVE (NEGATIVE); LEUKOCYTE ESTERASE, URINE AUTO NEGATIVE (NEGATIVE); MUCUS, URINE SMALL (NEGATIVE); NITRITE, URINE AUTO NEGATIVE (NEGATIVE); PROTEIN, URINE AUTO NEGATIVE (NEGATIVE); RBC, URINE AUTO 0 /HPF (0-3); SPECIFIC GRAVITY URINE AUTO 1.027 (1.002-1.035); SQUAMOUS EPITHELIAL CELL UR AU 2 /HPF (0-6); UROBILINOGEN, URINE AUTO 0.2 mg/dL (0.0-2.0); WBC, URINE AUTO 0 /HPF (0-3)
[2024-09-04 17:12] LABS: TOTAL PROTEIN,RANDOM URINE 16.1 MG/DL (0.0-14.0)
[2024-09-04 19:16] LABS: BASO % 0.4 % (0.0-1.0); EOS # 0.2 10^3/uL (0.0-0.5); EOS % 2.3 % (0.0-3.0); HEMATOCRIT 37.9 % (36.0-47.0); HEMOGLOBIN 12.1 g/dl (12.0-15.5); LYMPH # 3.5 10^3/uL (1.5-5.0); LYMPH % 41.3 % (24.0-44.0); MEAN CORPUSCULAR HEMOGLOBIN 27.5 pg (27.0-33.0); MEAN CORPUSCULAR HGB CONC 31.9 g/dl (32.0-36.5); MEAN CORPUSCULAR VOLUME 86.1 fl (80.0-96.0); MONO # 0.5 10^3/uL (0.0-0.8); MONO % 6.4 % (2.0-8.0); NEUTROPHILS # 4.2 10^3/uL (1.5-8.5); NEUTROPHILS % 49.4 % (36.0-66.0); WHITE BLOOD COUNT 8.4 10^3/uL (4.0-10.0)
[2024-09-04 19:40] LABS: ALBUMIN 3.9 G/DL (3.2-5.2); ALKALINE PHOSPHATASE 81 U/L (46-116); ALT/SGPT 12 U/L (7.0-40); AST/SGOT 10 U/L (<34); BILIRUBIN,DIRECT < 0.1 MG/DL (<0.4); BILIRUBIN,TOTAL 0.3 MG/DL (0.3-1.2); BLOOD UREA NITROGEN 18 MG/DL (9-23); CARBON DIOXIDE LEVEL 27 MMOL/L (20-31); CHLORIDE LEVEL 102 MMOL/L (98-107); COMPLEMENT C3 169.8 MG/DL (84.0-160.0); COMPLEMENT C4 45.6 MG/DL (12-36); CPK CREATINE PHOSPHOKINASE 135 U/L (34-145); CREATININE FOR GFR 0.71 MG/DL (0.55-1.30); GLOMERULAR FILTRATION RATE > 60.0 (>60); GLUCOSE, FASTING 61 MG/DL (60-100); PHOSPHORUS LEVEL 3.5 MG/DL (2.5-4.9); POTASSIUM SERUM 3.9 MMOL/L (3.5-5.1); SODIUM LEVEL 135 MMOL/L (136-145); TOTAL PROTEIN 8.1 G/DL (5.7-8.2)
[2024-09-04 19:44] LABS: FOLATE > 24.00 NG/ML (>5.4); TOTAL 25(OH) VITAMIN D 35.7 NG/ML (20.0-100.0); VITAMIN B12 LEVEL 1212 PG/ML (211-911)
[2024-09-04 20:19] LABS: ERYTHROCYTE SEDIMENTATION RATE 38 mm/hr (0-20)
== END ==
LOC: M SFHCRHEU 15:12
PROVIDERS: ATTEND Internal Medicine
DX: R76.8 Other specified abnormal immunological findings in serum (principal); R53.82 Chronic fatigue, unspecified; M79.10 Myalgia, unspecified site

== ENCOUNTER → 2024-09-11 | Outpatient (CLI) | payer OTHER | LOC: M PLALAB 09:18 | PROVIDERS: ATTEND Internal Medicine | DX: R76.8 Other specified abnormal immunological findings in serum (principal); R53.82 Chronic fatigue, unspecified ==